=== PATIENT | male | born 1955 | race Caucasian/White ===

== ENCOUNTER 2024-11-07 16:53 | Emergency (ER) | payer MEDICARE, OTHER ==
[2024-11-07] MEDS ORDERED: Sodium Chloride 0.9% 10 ML Syringe FLUSH PRN (17:08)
[2024-11-07 17:42] LABS: BASOPHILS PERCENT AUTO 0.1 % (0.0-1.0); EOSINOPHILS PERCENT AUTO 0.8 % (1.0-3.0); HEMATOCRIT 42.8 % (40.0-54.0); LYMPHOCYTES PERCENT AUTO 11.8 % (20.5-50.1); MEAN CORPUSCULAR HGB CONC 32.7 g/dL (33.0-35.0); MEAN CORPUSCULAR VOLUME 91.8 fL (80-100); NEUTROPHILS PERCENT AUTO 76.3 % (42.2-75.2); PLATELET COUNT,PLT 214 10^3/uL (150-450); RED BLOOD CELL COUNT 4.66 10^6/uL (4.6-6.2)
[2024-11-07 17:53] LABS: ALBUMIN 3.5 g/dL (3.4-5.0); ANION GAP 14.2 mEq/L (7-13); BLOOD UREA NITROGEN,BUN 50 mg/dL (7-18); BUN/CREATININE RATIO 22.5 (No establ ref range); CALCIUM 9.2 mg/dL (8.5-10.1); CARBON DIOXIDE,CO2 26 mmol/L (21-32); CHLORIDE,CL 101 mmol/L (98-107); CREATININE 2.22 mg/dL (0.70-1.30); GLUCOSE RANDOM 93 mg/dL (70-99); POTASSIUM,K 4.2 mmol/L (3.5-5.1); SODIUM,NA 137 mmol/L (136-145)
[2024-11-07 17:54] LABS: A/G RATIO 0.8; ALANINE AMINOTRANSFERASE,ALT 33 U/L (16-63); ALKALINE PHOSPHATASE 91 U/L (46-116); ASPARTATE AMNIOTRANSFERASE,AST 19 U/L (15-37); BILIRUBIN TOTAL 0.6 mg/dL (0.2-1.0); C-REACTIVE PROTEIN 9.89 ng/dL (<=0.50); ESTIMATED GFR 31 mL/min (>=60); MAGNESIUM 2.5 mg/dL (1.8-2.4)
[2024-11-07 17:57] LABS: LACTIC ACID 1.1 mmol/L (0.4-2.0)
[2024-11-07] MEDS: Sodium Chloride 0.9% 1,000 ML IV ONE (18:20)
[2024-11-07] MEDS: VANCOmycin 1.75 GM in Sodium Chloride 0.9% 500 ML IV ONE (18:54)
== END 2024-11-07 21:30 | disposition home or self-care (01) ==
LOC: DL.ED 16:53
DX: L08.9 Local infection of the skin and subcutaneous tissue, unspecified (principal); S90.121A Contusion of right lesser toe(s) without damage to nail, initial encounter; I10 Essential (primary) hypertension; E11.40 Type 2 diabetes mellitus with diabetic neuropathy, unspecified; Z88.0 Allergy status to penicillin; Z88.8 Allergy status to other drugs, medicaments and biological substances; Z79.899 Other long term (current) drug therapy; Z79.4 Long term (current) use of insulin; W20.8XXA Other cause of strike by thrown, projected or falling object, initial encounter; Y93.89 Activity, other specified
CPT/HCPCS: 36415; 73700; 80053; 83605; 83735; 85025; 86140; 87040; 96361; 96365; 96366; 99283; 99284; J3371; J7030; J7040